=== PATIENT | male | born 1970 | race Caucasian/White ===

== ENCOUNTER → 2016-06-21 | Outpatient (CLI) | payer OTHER ==
--- NOTE | 2016-06-21 16:05 | RADRPT ---
EXAM DATE/TIME: 06/21/2016 15:03 [place] COMPARISON: No previous studies available for comparison. INDICATIONS : Left testicle pain. MEDICAL HISTORY : Left testicle pain. SURGICAL HISTORY : None. ENCOUNTER: Initial ACUITY: 1 week PAIN SCORE: 0/10 LOCATION: Bilateral scrotum MEASUREMENTS: RIGHT TESTICLE: 3.3 x 3.6 x 2.3cm LEFT TESTICLE: 3.3 x 3.9 x 2.7cm FINDINGS: RIGHT TESTICLE: Testicle is homogeneous and within normal limits. Epididymis within normal limits. Trace hydrocele. B lood flow within normal limits. LEFT TESTICLE: Testicle is homogeneous and within normal limits. Multiple extratesticular cysts likely representing epididymal head cysts. The first measures 1.9 x 1.7 x 1.5 cm. The second measures 0.7 x 0.7 x 0.7 cm. Blood flow within normal limits. SCROTUM: Within normal limits. CONCLUSION: Testicles within normal limits. Extratesticular cysts on the left in the region of the epididymal hea d. Jani Cheung MD on June 21, 2016 at 16:00 Board Certified Radiologist. This report was verified electronically.
== END ==
LOC: HRAD 14:17
DX: N50.9 Disorder of male genital organs, unspecified (principal)
CPT/HCPCS: 76870; 93975